=== PATIENT | female | born 1995 | race Caucasian/White ===

== ENCOUNTER 2017-08-22 20:42 | Emergency (ER) | payer MEDICAID ==
[~2017-08-22] VITALS: Ht 162.6 cm; Wt 83.9 kg
[~2017-08-22 20:42] MED LIST: IBUP-974 PO
[2017-08-22 20:49] VITALS: BP 140/74
--- NOTE | 2017-08-22 20:54 | NUR ---
TO LOBBY AMB , VS STABLE, A/W FOR BED, HARPAL NOTED
--- NOTE | 2017-08-22 23:31 | NUR ---
22/F CAME IN WITH C/O 3/10 RLE PAIN, PT STATES " SOMETHING BIT ME AND THERE WAS SWELLING AND THE REDNESS IS SPREADING ON MY LEG". RT WILBURN NOTED WITH 3 SMALL SORES SURROUNDED WITH ERYTHEMA , MILD EDEMA NOTED, +PMSC. PT REPORTS ITCHING. PT DENIES FEVER/CHILLS, N/V/D. REPORTS APPLYING HYDROCORTISONE YESTERDAY TO CONTROL ITCHING, DENIES RELIEF. DENIES OTHER PMH/RX/OTC
[2017-08-23] MEDS ORDERED: KETOROLAC 30 MG/ML VIAL IVP ONE (00:35)
[2017-08-23] MEDS ORDERED: VANCOMYCIN 1,000 MG in DEXTROSE 5% 250 ML IV ONE (00:35)
[2017-08-23] MEDS ORDERED: VANCOMYCIN 1,000 MG VIAL ONE (00:49)
--- NOTE | 2017-08-23 01:30 | NUR ---
Patient appears to be resting comfortably in bed. Vital Signs within normal limits. Respirations even and unlabored.
--- NOTE | 2017-08-23 03:07 | NUR ---
Patient discharged with v/s stable. Written and verbal after care instructions given and explained BY DR STEELE. Patient alert, oriented and verbalized understanding of instructions. Ambulatory with steady gait. All questions addressed prior to discharge. ID band removed. Patient advised to follow up with PMD. Rx of KEFLEX given. Patient educated on indication of medication including possible reaction and side effects. Opportunity to ask questions provided and answered.
[2017-08-23 03:10] VITALS: BP 128/72
== END 2017-08-23 03:07 | disposition home or self-care (01) ==
LOC: MED 20:42
DX: L03.115 Cellulitis of right lower limb (principal); J45.909 Unspecified asthma, uncomplicated
CPT/HCPCS: 96374; 96375; 99284; J1885; J3370